=== PATIENT | female | born 1960 | race Hispanic/Latino ===

== ENCOUNTER → 2023-07-27 | Outpatient (CLI) | payer OTHER | END | disposition home or self-care (01) | LOC: RAH 09:52 | PROVIDERS: ATTEND Family Medicine | DX: M17.11 Unilateral primary osteoarthritis, right knee (principal); M25.561 Pain in right knee | CPT/HCPCS: 73562 ==

== ENCOUNTER → 2023-08-22 | Outpatient (CLI) | payer OTHER | END | disposition home or self-care (01) | LOC: RAH 11:29 | PROVIDERS: ATTEND Family Medicine | DX: Z12.31 Encounter for screening mammogram for malignant neoplasm of breast (principal) | CPT/HCPCS: 77067 ==

== ENCOUNTER → 2023-09-04 | Outpatient (CLI) | payer OTHER | END | disposition home or self-care (01) | LOC: RAH 10:10 | PROVIDERS: ATTEND Family Medicine | DX: Z13.820 Encounter for screening for osteoporosis (principal); M85.88 Other specified disorders of bone density and structure, other site; Z78.0 Asymptomatic menopausal state | CPT/HCPCS: 77080 ==

== ENCOUNTER → 2023-09-18 | Outpatient (CLI) | payer OTHER | END | disposition home or self-care (01) | LOC: RAH 15:13 | PROVIDERS: ATTEND Family Medicine | DX: M25.562 Pain in left knee (principal) | CPT/HCPCS: 73560 ==

== ENCOUNTER 2025-04-20 07:44 | Emergency (ER) | payer OTHER ==
[~2025-04-20] VITALS: Ht 149.9 cm; Wt 64.1 kg
--- NOTE | 2025-04-20 07:53 | ERN ---
General Chief Complaint: Abdominal Pain Stated Complaint: LOWER ABD PAIN Time Seen by MD: 07:47 Source: patient History of Present Illness Initial Comments The patient is a 64-year-old female who came to the ER with complaint of abdominal pain. The patient stated that her pain started yesterday in the left lower quadrant and then moved to the whole lower abdomen. The patient had constipation since yesterday so she tried using an enema to help her defecate but was not successful as the patient did not have a bowel movement. The patient has never had this kind of pain before. The patient stated that the severity of the pain is 10/10. The patient stated that she has a history of a burst ovary on the left side. Timing/Duration: constant Severity: severe Modifying Factors: improves with rest Allergies: Coded Allergies: No Known Allergies (Unverified Allergy, Unknown, 04/20/25) Past Medical History Past Medical History: High Cholesterol, UTI Past Surgical History: Hysterectomy, Surgical History Other: LT OVARY Constitutional: (-) chills, (-) diaphoresis, (-) fever, (-) malaise, (-) weakness, (-) other documentation EENTM: (-) eye pain, (-) blurred vision, (-) tearing, (-) double vision, (-) ear pain, (-) ear discharge, (-) nose pain, (-) nose congestion, (-) throat pain, (-) Throat swelling, (-) mouth pain, (-) tooth pain, (-) mouth swelling, (-) other documentation Respiratory: (-) cough, (-) orthopnea, (-) short of breath, (-) stridor, (-) wheezing, (-) other documentation Cardiovascular: (-) chest pain, (-) edema, (-) palpitations, (-) syncope, (-) dyspnea on exertion, (-) other documentation Gastrointestinal/Abdominal: (+) abdominal pain, (+) constipation Genitourinary: (-) vaginal discharge, (-) vaginal bleeding, (-) dysuria, (-) frequency, (-) hematuria, (-) pain, (-) other documentation Musculoskeletal: (-) Neck pain, (-) back pain, (-) Flank Pain, (-) joint pain, (-) joint swelling, (-) muscle pain, (-) muscle stiffness, (-) gout, (-) other documentation Skin: (-) laceration, (-) contusion, (-) abrasion, (-) abscess, (-) rash, (-) change in color, (-) change in hair, (-) change in nails, (-) diaphoresis, (-) dryness, (-) other documentation Neuro: (-) altered mental status, (-) headache, (-) syncope, (-) paralysis, (-) numbness, (-) seizure, (-) pre-existing deficit, (-) tremors, (-) weakness, (-) dizziness, (-) slurred speech, (-) vertigo, (-) other documentation Psych: (-) depression, (-) suicidal ideation, (-) anxiety, (-) emotional problems, (-) auditory hallucinations, (-) visual hallucinations Hematologic/Lymphatic: (-) anemia, (-) blood clots, (-) easy bleeding, (-) easy bruising, (-) swollen glands, (-) other documentation Immunological/Allergic: (-) food allergy, (-) grass allergy, (-) mold allergy, (-) pollen allergy, (-) HIV/AIDS, (-) transplant, (-) othe documentation Physical Exam General Appearance: (+) severe distress Orientation: (+) alert, (+) oriented x 3 Head/Face Trauma: No Ear, Nose, Throat: (-) hearing grossly normal, (-) normal ENT inspection, (-) moist mucous membraine, (-) normal pharynx, (-) normal TM, (-) abnormal TM, (-) pharyngeal erythema, (-) sinus drainange, (-) sinus pain, (-) tonsillar exudate, (-) tonsillar swelling, (-) nasal drip, (-) nasal congestion, (-) hearing decreased, (-) dry mucous membraine, (-) other documentation Neck: (-) normal inspection, (-) supple, (-) full range of motion, (-) no JVD, (-) non-tender, (-) no bruit, (-) tender, (-) limited range of motion, (-) tender lateral, (-) tender midline, (-) thyromegaly, (-) lymphadenopathy, (-) masses, (-) carotid bruit, (-) other documentaion Respiratory: (-) chest non-tender, (-) lungs clear, (-) well ventilated, (-) decreased breath sounds, (-) retractions, (-) abnormal breath sound, (-) crackles, (-) plerual rub, (-) rales, (-) rhonchi, (-) stridor, (-) wheezing, (- ) other documentation Heart: (-) regular, (-) no gallop, (-) murmur, (-) irregular, (-) bradycardia, (-) tachycardia, (-) systolic murmur, (-) diastolic murmur, (-) extra beats, (-) friction rub, (-) gallop/S3, (-) gallop/S4, (-) other documentation Vascular: (-) no edema, (-) normal peripheral pulse, (-) no JVD, (-) abdominal aorta, (-) abnormal peripheral pulse, (-) carotid bruit, (-) edema, (-) JVD, (-) varicose vein, (-) other documentation Gastrointestinal: (+) tender Gastrointestinal Comment Tenderness in the left lower quadrant radiating to the whole lower abdomen on palpation Genital: (-) normal vaginal exam, (-) vaginal Bleeding, (-) vaginal discharge, (-) vaginal lesion, (-) deferred, (-) other documentation Rectal: (-) normal exam, (-) normal rectal tone, (-) heme negative stool, (-) deferred, (-) black stool, (-) blood streaked stool, (-) decreased tone, (-) heme positive stool, (-) hemorrhoids, (-) mass, (-) tenderness, (-) other Back: (-) normal inspection, (-) no CVA tenderness, (-) no vertebral tenderness, (-) CVA tenderness (R), (-) CVA tenderness (L), (-) decreased range of motion, (-) muscle spasm, (-) vertebral tenderness, (-) other Extremities: (-) normal range of motion, (-) non-tender, (-) normal inspection, (-) no pedal edema, (-) no calf tenderness, (-) normal capillary refill, (-) pelvis stable, (-) calf tenderness, (-) inflammation, (-) pedal edema, (-) slow capillary refill, (-) swelling, (-) other Neurologic/Psychiatric: (-) normal speech, (-) no motor defecits, (-) no sensory deficits, (-) 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, (-) normal gait, (-) normal mood/affect, (-) abnormal cerebellar tests, (-) abnormal gait, (-) aphasia, (-) facial droop, (-) other documentation Skin: (-) normal color, (-) warm/dry, (-) cyanosis, (-) diaphoresis, (-) jaundice, (-) mottled, (-) pallor, (-) rash Lymphatic: (-) no adenopathy, (-) axilla node tender (R), (-) axilla node tender (L), (-) inguinal node tender (R), (-) inguinal node tender (L), (-) other Results Laboratory and Microbiology Lab and Micro Result Laboratory Tests Test 04/20/25 07:58 04/20/25 08:08 Urine Color YELLOW (YELLOW) Urine Appearance CLOUDY (CLEAR) H Urine pH 7.5 (5.0-8.0) Urine Specific [place] 1.021 (1.001-1.031) Urine Protein 30 mg/dL (NEGATIVE) H Urine Glucose (UA) NEGATIVE mg/dL (NEGATIVE) Urine Ketones NEGATIVE mg/dL (NEGATIVE) Urine Occult Blood NEGATIVE (NEGATIVE) Urine Nitrate NEGATIVE (NEGATIVE) Urine Bilirubin NEGATIVE mg/dL (NEGATIVE) Urine Urobilinogen 0.2 mg/dL (0.2-1.0) Urine Leukocyte Esterase 75 Tess/uL (NEGATIVE) H Urine RBC 2-5 /HPF (0-1) H Urine WBC 2-5 /HPF (0-1) H Urine Squamous Epithelial Cells FEW /HPF (0-2) Urine Bacteria None /HPF (None Seen) White Blood Count 12.2 K/uL (4.8-10.8) H Red Blood Count 4.51 MIL/uL (4.00-5.50) Hemoglobin 13.8 g/dL (12.0-16.0) Hematocrit 42.2 % (36-48) Mean Corpuscular Volume 93.6 fL (79-99) Mean Corpuscular Hemoglobin 30.6 pg (27.0-33.0) Mean Corpuscular Hemoglobin Concent 32.7 g/dL (32.0-36.0) Red Cell Distribution Width 13.2 % (11.0-15.5) Platelet Count 265 K/uL (130-400) Mean Platelet Volume 10.0 fL (7.5-10.5) Immature Granulocyte % (Auto) 0.3 % (0-1) Neutrophils (%) (Auto) 66.9 % (40.0-77.0) Lymphocytes (%) (Auto) 20.4 % (21.0-51.0) L Monocytes (%) (Auto) 12.0 % (3.0-13.0) Eosinophils (%) (Auto) 0.1 % (0.0-8.0) Basophils (%) (Auto) 0.3 % (0.0-5.0) Neutrophils # (Auto) 8.2 K/uL (1.8-7.7) H Lymphocytes # (Auto) 2.5 K/uL (1.0-4.8) Monocytes # (Auto) 1.5 K/uL (0.1-1.0) H Eosinophils # (Auto) 0.01 K/uL (0.00-0.70) Basophils # (Auto) 0.04 K/uL (0.00-0.20) Absolute Immature Granulocyte (auto 0.04 K/uL (0-1) Nucleated Red Blood Cells 0.0 % (0.0-0.19) Sodium Level 137 mmol/L (136-145) Potassium Level 3.6 mmol/L (3.5-5.1) Chloride Level 102 mmol/L (101-111) Carbon Dioxide Level 26 mmol/L (21-32) Blood Urea Nitrogen 9 mg/dL (7-18) Creatinine 0.7 mg/dL (0.5-1.0) Glomerular Filtration Rate Calc 95 mL/min (>90) Random Glucose 120 mg/dL (70-105) H Total Calcium 8.8 mg/dL (8.5-10.1) EKG/XRAY/US/CT/MRI Ultrasound Comment Ultrasound pelvic-with a normal limits MDM MDM: Differential diagnosis: UTI, dysuria, history of ovarian cyst Rationale: Tests considered and ordered secondary to shared decision making include: Previous outside records reviewed: Old ER visits. Risk of complication and/or morbidity or mortality of patient management: None Medications-Per medication reconciliation Need for hospitalization: Patient does not meet criteria for hospitalization. Need for emergency major/minor surgery: No Patient is a 64-year-old female coming in complaining of suprapubic discomfort. Patient states that she was diagnosed with a urinary tract infection with a month ago. She states that she has been having lower abdominal pain and discomfort worsening last night. Patient came in for further evaluation laboratory workup did disclose a urinary tract infection still present. Patient received 1 g of IV Rocephin he will be discharged with oral antibiotics I did advised her appropriate follow up with PCP for ongoing management. Pending uri ne cultures. ED Course Orders Procedure Category Date Status Time Cbc With Differential LAB 04/20/25 Complete 07:51 Basic Metabolic Panel LAB 04/20/25 Complete 07:51 Urinalysis LAB 04/20/25 Complete W/Microscopic 07:51 Culture Urine CHANTAL 04/20/25 In Process 08:10 Ceftriaxone 1g Vial PHA 04/20/25 Complete (Rocephine 1g Inj) 09:00 Acetaminophen 500mg PHA 04/20/25 Complete Tab (Tylenol 500mg T 09:00 Us Pelvic Non-Ob Comp US 04/20/25 Taken 09:00 Current Medications Medications (Trade) Dose Ordered Sig/Vonda Route PRN Reason Start Time Stop Time Status Last Admin Dose Admin Acetaminophen (TYLenol 500MG TAB) 500 mg ONCE ONCE PO 04/20/25 09:00 04/20/25 09:01 DC 04/20/25 09:09 Ceftriaxone Sodium (ROCEphine 1G INJ) 1 gm ONCE ONCE IVPB 04/20/25 09:00 04/20/25 09:01 DC 04/20/25 09:09 Vital Signs Date Time Temp Pulse Resp B/P (MAP) Pulse Ox O2 Delivery O2 Flow Rate FiO2 04/20/25 09:09 99.1 04/20/25 08:16 99.1 77 18 130/54 95 Room Air* 0 21 04/20/25 07:46 99.1 96 16 151/67 97 Room Air 0 DX & DISP Disposition: Discharge Departure Impression: Primary Impression: Urinary tract infection Condition: Stable Scripts Phenazopyridine HCl (Pyridium) 100 Mg Tab 1 TAB PO TID for urinary discomfort for 2 Days, #6 TAB 0 Refills Prov: ANALI BEASLEY MD 04/20/25 Cephalexin Monohydrate (Keflex) 500 Mg Cap 1 CAP PO BID for 10 Days, #20 CAP 0 Refills Prov: ANALI BEASLEY MD 04/20/25 Additional Instructions: FOLLOW-UP WITH PRIMARY CARE PROVIDER IN 1 TO 2 DAYS. TAKE MEDICATIONS DIRE CTED HERE IN THE EMERGENCY ROOM. OKAY TO CONTINUE HOME MEDICATIONS UNLESS OTHERWISE DISCUSSED DURING YOUR VISIT IN THE EMERGENCY ROOM TODAY. RETURN TO YOUR NEAREST EMERGENCY ROOM IF SYMPTOMS WORSEN OR IF THERE IS NO IMPROVEMENT. CALL 911 IF YOU NEED IMMEDIATE ASSISTANCE. TAKE TYLENOL [id number] NEEDED AND IF NO CONTRAINDICATIONS ARE PRESENT. INCREASE ORAL HYDRATION. A WOUND CULTURE OR URINE CULTURE WAS ORDERED HERE IN THE EMERGENCY ROOM DEPARTMENT PLEASE FOLLOW-UP WITH PRIMARY CARE PROVIDER AND ADVISE THEM TO GET REPORTS FROM OUR FACILITY. IF YOU HAD ANY HOA WRAP/SPLINTS THAT WERE APPLIED HERE, PLEASE DO NOT REMOVE THEM UNTIL YOU SEE YOUR PRIMARY CARE OR SPECIALTY. Referrals: Referrals: SKYLA SAXENA MD (PCP) Time of Disposition: 10:04 ANALI BEASLEY MD Apr 20, 2025 07:53 ERICKSON FORBES MD Apr 20, 2025 07:56
[2025-04-20 08:05] LABS: APPEARANCE,URINE CLOUDY (CLEAR); GLUCOSE, URINE (UA) NEGATIVE (NEGATIVE); LEUKOCYTE ESTERASE ,URINE 75 Leu/uL (NEGATIVE); NITRATE,URINE NEGATIVE (NEGATIVE); OCCULT BLOOD,URINE NEGATIVE (NEGATIVE)
[2025-04-20 08:12] LABS: SQUAMOUS EPITHELIAL CELL,UR FEW /HPF (0-2)
[2025-04-20 08:19] LABS: IMMATURE GRANULOCYTE ABSOLUTE 0.04 K/uL (0-1); NUCLEATED RED BLOOD CELLS 0.0 % (0.0-0.19); PLATELET COUNT (AUTO) 265 K/uL (130-400); RED BLOOD CELL COUNT(AUTO) 4.51 MIL/uL (4.00-5.50); RED CELL DISTRIBUTION WIDTH 13.2 % (11.0-15.5); WHITE BLOOD COUNT (AUTO) 12.2 K/uL (4.8-10.8)
[2025-04-20 08:27] LABS: CREATININE 0.7 mg/dL (0.5-1.0); GLOMERULAR FILTR. RATE CALC 95.0 mL/min (>90); GLUCOSE,RANDOM 120.0 mg/dL (70-105); SODIUM SERUM 137.0 mmol/L (136-145); UREA NITROGEN, BLOOD 9.0 mg/dL (7-18)
[2025-04-20] MEDS ORDERED: CEPH500B PO (10:04)
[2025-04-20] MEDS ORDERED: PHEN-846 PO (10:04)
[2025-04-20 10:09] VITALS: TEMP 99.1
--- NOTE | 2025-04-20 10:26 | HMCIMG ---
EXAM: US Pelvis, Complete Transabdominal COMPARISON: None provided. CLINICAL HISTORY: Pelvic pain left TECHNIQUE: Transabdominal pelvic ultrasound (complete) with image documentation. FINDINGS: UTERUS/CERVIX: Post-hysterectomy status. RIGHT OVARY: Obscured. LEFT OVARY: Obscured. FREE FLUID: No free fluid. IMPRESSION: No acute abnormality in the visualized pelvis. Post-hysterectomy status with obscuration of the bilateral ovaries. Recommend clinical correlation and MRI pelvis if clinically warranted. /[place]
[2025-04-20 10:45] VITALS: BP 117/65; PULSE 71; RESP 17; TEMP 98.7; O2SAT 98
== END 2025-04-20 11:05 | disposition home or self-care (01) ==
LOC: EDH 07:44
DX: N39.0 Urinary tract infection, site not specified (principal); E78.00 Pure hypercholesterolemia, unspecified; Z87.440 Personal history of urinary (tract) infections; Z90.710 Acquired absence of both cervix and uterus
CPT/HCPCS: 99285; 96374; 76856; 80048; 85025; 87086; 81001; 36415; J0696

== ENCOUNTER → 2025-06-01 | Outpatient (CLI) | payer OTHER ==
[~2025-06-01] MED LIST: CEPH500B PO; GADOTERATE MEGLUMINE 10 MMOL/20 ML VIAL IV ONE; PHEN-846 PO
--- NOTE | 2025-06-05 13:18 | HMCIMG ---
EXAM: MRI of the Pelvis with and without Intravenous Contrast CLINICAL HISTORY: Abnormal findings on diagnostic imaging of other specified body structures. Further evaluation requested. TECHNIQUE: Multiplanar, multisequence MRI of the pelvis was performed before and after intravenous contrast administration. COMPARISON: Pelvic sonography dated April 20, 2025, which demonstrated no acute abnormality and post-hysterectomy status without visualization of both ovaries. FINDINGS: Uterus and Cervix: Status post hysterectomy. Adnexa: There is a right adnexal cystic lesion measuring approximately 4.3 2.8 3.0 cm. The lesion is hyperintense on T2-weighted images and hypointense on T1-weighted images. It is not seen separate from the right ovary, suggesting ovarian origin. A fine thin internal septation measuring approximately 1 mm in thickness is noted along the superolateral aspect of the cyst. No mural nodules, papillary projections, or solid components are identified. On post-contrast images, the cyst demonstrates smooth peripheral rim enhancement. The internal septation does not show enhancement. No left adnexal lesion is identified. The left ovary is not visualized. Bowel: Sigmoid colonic diverticulosis without evidence of diverticulitis in the visualized extent. Lymph Nodes: No pelvic or inguinal lymphadenopathy. Bones: The visualized pelvic bones demonstrate normal marrow signal without edema or focal lesion. Spine (visualized portions): Degenerative changes of the lumbar spine are noted, with central disc herniations from L2L3 through L5S1 causing thecal sac indentation. Mild retrolisthesis of L5 over S1 is present. No bone marrow edema. IMPRESSION: * Right adnexal unilocular cystic lesion measuring 4.3 cm, likely ovarian in origin, with a thin non-enhancing internal septation and smooth peripheral rim enhancement, without solid components or enhancing nodules. O-RADS MRI category: O-RADS MRI 3 (low risk for malignancy). Follow-up in 6 to 12 months is recommended. * Status post hysterectomy. Left ovary not visualized and no left adnexal mass identified. * Sigmoid colonic diverticulosis without imaging evidence of diverticulitis. * Compared with prior pelvic sonography dated April 20, 2025, the right adnexal cystic lesion is newly identified on the current MRI, with no other significant interval change. /[place]
--- NOTE | 2025-06-05 13:20 | HMCIMG ---
EXAMINATION: MRI of the Abdomen with and without Contrast CLINICAL HISTORY: Abnormal findings on prior diagnostic imaging of other specified body structures. TECHNIQUE: Multiplanar, multi-sequence MRI of the abdomen was performed with and without intravenous gadolinium contrast, including dynamic multiphasic post-contrast imaging of the upper abdomen. PRIOR STUDIES: No priors are available for comparison.FINDINGS Liver: The liver is normal in size and contour. No focal hepatic lesions are identified. Multiphasic dynamic post-contrast imaging shows no lesion demonstrating arterial hyperenhancement or washout. Gallbladder: The gallbladder is unremarkable. A nodularity is noted at the fundus measuring approximately 4 9 mm, consistent with focal fundal adenomyomatosis. No enhancement is seen within this nodularity. No wall thickening or pericholecystic edema is present. Biliary System: The common bile duct measures 5 mm with smooth distal tapering. The main pancreatic duct measures 3 mm without dilatation. Pancreas: Pancreatic parenchyma is unremarkable. No mass or cystic lesions identified. Spleen: The spleen is unremarkable in size, contour, and signal intensity. Adrenal Glands: The right adrenal gland demonstrates a well-circumscribed nodule measuring 2.3 1.6 1.8 cm. It is hypointense on T1 and T2-weighted images with a small 4 mm focus of T2 hyperintensity. The lesion shows signal drop on opposed-phase imaging, consistent with macroscopic fat. No diffusion restriction is noted. Post-contrast, the lesion demonstrates homogeneous enhancement. Kidneys: The right kidney demonstrates a partly exophytic lower pole cyst measuring 1.3 cm (series 3, image 11/36), without septations or nodularity, consistent with a Bosniak class I simple cyst. The left kidney is unremarkable. Minimal bilateral perinephric edema is noted, non-specific. Renal size is within normal limits and there is no hydronephrosis. Bowel: Bowel loops are unremarkable. Vasculature: Abdominal vasculature demonstrates normal caliber and course. Lung Bases: The lung bases included in the field of view are unremarkable.IMPRESSION * Right adrenal nodule measuring 2.3 1.6 1.8 cm demonstrating loss of signal on out of phase imaging, consistent with lipid-rich adenoma. * Partly exophytic simple cyst of the right lower renal pole, 1.3 cm, Bosniak class I. * Focal fundal adenomyomatosis of the gallbladder measuring 4 9 mm, without enhancement. /[place]
== END | disposition home or self-care (01) ==
LOC: RAH 13:04
PROVIDERS: ATTEND Family Medicine
DX: D13.5 Benign neoplasm of extrahepatic bile ducts (principal); K57.30 Diverticulosis of large intestine without perforation or abscess without bleeding; R10.20 Pelvic and perineal pain unspecified side; R93.89 Abnormal findings on diagnostic imaging of other specified body structures; Z90.710 Acquired absence of both cervix and uterus; R60.0 Localized edema; E27.8 Other specified disorders of adrenal gland; N28.1 Cyst of kidney, acquired
CPT/HCPCS: 74183; 72197; A9575